=== PATIENT | male | born 1995 | race Hispanic/Latino ===

== ENCOUNTER 2019-10-10 17:06 | Emergency (ER) | payer SELFPAY ==
[2019-10-10] MEDS ORDERED: Lidocaine 1% w/Epinephrine 1:100K 20 ML VIAL ONE (18:51)
[2019-10-10] MEDS ORDERED: Adacel (T-DAP) 0.5 ML SYRINGE ONE (20:06)
[2019-10-10] MEDS ORDERED: Bacitracin 1 PK ONE (20:57)
== END 2019-10-10 21:09 | disposition home or self-care (01) ==
LOC: ERS 17:06
DX: S51.812A Laceration without foreign body of left forearm, initial encounter (principal); S71.112A Laceration without foreign body, left thigh, initial encounter; Z23 Encounter for immunization; W25.XXXA Contact with sharp glass, initial encounter
CPT/HCPCS: 12002; 12032; 90471; 90715